=== PATIENT | male | born 1950 | race Caucasian/White ===

== ENCOUNTER 2016-11-26 07:52 | Emergency (ER) | payer OTHER, MEDICAID | END 2016-11-26 08:36 | disposition home or self-care (01) | LOC: ER 07:52 | DX: J01.10 Acute frontal sinusitis, unspecified (principal); I11.0 Hypertensive heart disease with heart failure; E11.9 Type 2 diabetes mellitus without complications; G47.33 Obstructive sleep apnea (adult) (pediatric); Z79.82 Long term (current) use of aspirin; Z79.4 Long term (current) use of insulin; Z79.899 Other long term (current) drug therapy ==